=== PATIENT | male | born 1985 | race Caucasian/White ===

== ENCOUNTER 2020-03-02 08:53 | Emergency (ER) | payer SELFPAY ==
--- NOTE | ~2020-03-02 | CT_ITS ---
EXAMINATION: CT brain wo con DATE: 03/02/2020 09:40 INDICATION: Unresponsive TECHNIQUE: Computed tomography (CT) of the head was performed without intravenous contrast. Sagittal and coronal reconstructions were performed. The mA was adjusted according to patient size. Iterative reconstruction technique was employed. The dose-length product was 1059.33 mGy-cm. COMPARISON: None FINDINGS: No fracture. No acute intracranial hemorrhage, acute infarction or abnormal extra axial fluid collect ion. Ventricles are normal and symmetric. No mass/mass effect. Nasogastric tube coils in the orophary nx with distal tip directed cephalad and positioned at the posterior left nasal cavity/nasopharynx. P rominent mucosal thickening with opacification multiple right ethmoid sinuses and opacification of th e left maxillary sinuses. Mild mucosal thickening the right sphenoid and left ethmoid sinuses. The or bits and mastoid air cells are normal. IMPRESSION: 1. Normal brain. No acute intracranial process. 2. Nasogastric tube coils in the oropharynx with distal tip extending cephalad at the left nasal cavi ty/nasopharynx. Recommend withdrawal and repositioning. Reviewed, dictated and finalized at location B. IMPRESSION: 1. Normal brain. No acute intracranial process. 2. Nasogastric tube coils in the oropharynx with distal tip extending cephalad at the left nasal cavity/nasopharynx. Recommend withdrawal and repositioning.
--- NOTE | ~2020-03-02 | CT_ITS ---
EXAMINATION: CT chest abdomen pelvis wo con DATE: 03/02/2020 09:40 INDICATION: Unresponsive, jaundice, GI bleeding TECHNIQUE: Computed tomography (CT) of the chest, abdomen, and pelvis was performed without intraveno us contrast. The dose-length product (DLP) was 1990.84 mGy-cm. Automated exposure control and iterati ve reconstruction technique were employed. COMPARISON: None FINDINGS: CHEST: Respiratory motion artifact limits evaluation of the chest. No focal airspace opacity is ident ified. There is no pleural effusion or pneumothorax. No pathologically enlarged thoracic lymph nodes are identified. The heart size is normal. Mild gynecomastia is noted. There is moderate lower thoraci c spondylosis. Abdomen/pelvis: There is distention of the gallbladder with gallbladder wall thickening. The liver padilla rface appears nodular. The spleen, pancreas, and adrenal glands are normal. The kidneys are unremarka ble. Periportal, upper abdominal, perisplenic, and right paracaval soft tissue densities could reflec t lymphadenopathy or varices, distinction is difficult without intravenous contrast although the latt er is suspected. There is no free intraperitoneal gas or evidence of bowel obstruction. There is a la rge umbilical hernia containing fat. IMPRESSION: 1. Cirrhosis with possible extensive abdominal varices and collateral vessels, distinction difficult without intravenous contrast. 2. Gallbladder distention and wall thickening which could relate to chronic liver disease. 3. No acute abnormality of the chest. Reviewed, dictated and finalized at location A. IMPRESSION: 1. Cirrhosis with possible extensive abdominal varices and collateral vessels, distinction difficult without intravenous contrast. 2. Gallbladder distention and wall thickening which could relate to chronic navarro er disease. 3. No acute abnormality of the chest.
--- NOTE | ~2020-03-02 | CT_ITS ---
EXAMINATION: CT cervical spine wo con DATE: 03/02/2020 09:40 INDICATION: Unresponsive. TECHNIQUE: Computed tomography (CT) of the cervical spine was performed without intravenous contrast. Automated exposure control and iterative reconstruction technique were employed. The dose-length pro duct was 623.89 mGy-cm. COMPARISON: None FINDINGS: The nasogastric tube is coiled in the pharynx. There is mild kyphosis of cervical spine. Th ere is 6 degrees dextrocurvature of cervical spine. Vertebral body heights are normal. There is mildl y decreased disc height at C4-C5, C5-C6, and C6-C7. The following disc levels are specifically discus sed: C2-C3: There is mild left uncovertebral joint osteoarthritis. There is mild bilateral facet joint ost eoarthritis. There is no neural foraminal stenosis. There is no central canal stenosis. C3-C4: There is mild left uncovertebral joint osteoarthritis. There is mild bilateral facet joint ost eoarthritis. There is no neural foraminal stenosis. There is no central canal stenosis. C4-C5: There is no uncovertebral joint osteoarthritis. There is no facet joint osteoarthritis. There is no neural foraminal stenosis. There is no central canal stenosis. C5-C6: There is mild bilateral uncovertebral joint osteoarthritis. There is mild right facet joint os teoarthritis. There is no neural foraminal stenosis. There is mild central canal stenosis. C6-C7: There is mild bilateral uncovertebral joint osteoarthritis. There is mild left facet joint ost eoarthritis. There is no neural foraminal stenosis. There is mild central canal stenosis. C7-T1: There is no uncovertebral joint osteoarthritis. There is mild right facet joint osteoarthritis . There is no neural foraminal stenosis. There is no central canal stenosis. IMPRESSION: 1. No fracture. 2. Mild cervical spondylosis. 3. Nasogastric tube coiled in the pharynx. Reviewed, dictated and finalized at location A.
[2020-03-02 08:55] VITALS: PULSE 140; RESP 26; TEMP 36.4; O2SAT 99
[2020-03-02 09:00] VITALS: PULSE 155; RESP 26; O2SAT 92
--- NOTE | 2020-03-02 09:06 | ECG_ITS ---
Measurements Intervals [place] Rate: 146 P: 56 MS: 84 QRS: 44 QRSD: 101 T: 67 QT: 327 QTc: 510 Interpretive Statements ATRIAL FLUTTER/TACHYCARDIA WITH RAPID VENTRICULAR RESPONSE DELAYED PRECORDIAL R/S TRANSITION NONSPECIFIC ST & T-WAVE ABNORMALITY- INF/LAT LEADS BASELINE ARTIFACT- I, II, III, AVL, AVF, V1-V2, V5-V6 ABNORMAL ECG Electronically Signed On 03-02-2020 12:29:43 CDT by Jasen Gaona D.O.
[2020-03-02 09:32] LABS: Hematocrit 27.2 % (40.0-54.0); Hemoglobin 9.5 g/dL (14.0-18.0); Immature Platelet Fraction Pct 4.7 % (1.0-7.0); Mean Corpuscular HGB Conc 34.9 g/dL (32.0-36.0); Mean Corpuscular Hemoglobin 31.8 pg (27.0-31.0); Mean Platelet Volume 13.3 fl (8.7-11.0); Platelet Count Result 30 K/mm3 (150-420); Red Blood Count 2.99 M/mm3 (4.70-6.10); Red Cell Distribution Width 16.4 % (11.6-14.4); White Blood Count 12.2 K/mm3 (4.8-10.8)
[2020-03-02 09:46] LABS: Alanine Aminotransferase 63 U/L (16-63); Albumin Level 1.3 g/dL (3.4-5.0); Alkaline Phosphatase 132 U/L (46-116); Anion Gap 12 mmol/L (8-16); Aspartate Amino Transferase 272 U/L (15-37); Blood Urea Nitrogen 17 mg/dL (7-18); Calcium 6.4 mg/dL (8.5-10.1); Carbon Dioxide 28 mmol/L (21-32); Chloride 93 mmol/L (98-108); Estimated Glomerular Filt Rate > 60; Glucose 115 mg/dL (70-99); Osmolality Calculated 278 mOsm/kg (285-295); Potassium 3.5 mmol/L (3.5-5.1); Sodium 133 mmol/L (136-145)
[2020-03-02 09:47] LABS: Bilirubin,Total 13.7 mg/dL (0.00-1.00)
[2020-03-02 09:48] LABS: Ammonia 190 umol/L (11-32); Lipase 69 U/L (73-393); Magnesium 0.9 mg/dL (1.8-2.4)
[2020-03-02 09:49] LABS: INR 3.6; Lactic Acid 12.9 mmol/L (0.4-2.0); Partial Thromboplastin Time 73.2 SEC (22.3-31.6); Prothrombin Time 35.2 Seconds (9.64-11.0)
[2020-03-02 09:49] LABS: Ethanol 253 mg/dL (0-6)
[2020-03-02] MEDS: ETOMIDATE 20 MG/10 ML AMPUL 40 MG (09:56)
[2020-03-02] MEDS: SUCCINYLCHOLINE CHLORIDE 200 MG/10 ML SYRINGE (09:57)
[2020-03-02] MEDS: SODIUM CHLORIDE 0.9% IV 1,000 ML 999 ML IV CONT (10:00)
[2020-03-02] MEDS: MAGNESIUM SULF 2 GM/WATER 50ML 2 GM/50 ML BAG 50 GM (10:00)
[2020-03-02 10:30] LABS: Creatine Kinase 389 U/L (39-308); Troponin I 0.04 ng/mL (0.00-0.056)
--- NOTE | 2020-03-02 10:31 | ED.AMS ---
HPI - Altered Mental Status General Chief Complaint: Altered Mental Status Stated Complaint: ambulance Source: EMS Mode of arrival: EMS Limitations: altered mental status History of Present Illness HPI narrative: This is a 35-year-old gentleman presents via EMS unresponsive, was found unresponsive at home by his caregiver marine consultant and contacted EMS and was brought to the emergency department. Patient was noted to have nausea and vomiting bright red emesis profusely, unresponsive to verbal and to painful stimuli. Has a past medical history that is significant for alcohol abuse and according to his mother he would rarely if ever go to a doctor even if he was not feeling well. Patient was brought in he was some actively vomiting with bright red blood, he was jaundiced with pupils that were fixed and mildly responsive to light. No response to verbal stimuli, the patient was on a non-rebreather at 15 L of oxygen and was satting at 99 to 100% with a heart rate initially in the 140s. No known past medical history, after speaking to the mother she believes that he had issues with obstructive sleep apnea and high blood pressure and tried to get and come to see a physician to no avail. According to the mother he started having some bright red blood per emesis that was mild initially and then in the morning there was noted quite a bit of blood on his pillow, mother went to work and there was a house gas that was staying with him that noted that he became unresponsive and at that point EMS was called. complaint: altered mental status Onset (ago): hour(s) Timing confirmed by: caregiver Severity: severe Consistency of symptoms: constant Context: alcohol abuse Associated symptoms: nausea/vomiting Treatments prior to arrival: IV fluid and oxygen Related Data Home Medications Medication Instructions Recorded Confirmed Unable to Obtain Home Medications 03/02/20 03/02/20 Allergies Allergy/AdvReac Type Severity Reaction Status Date / Time No Known Allergies Allergy Mild Verified 05/03/08 22:12 Review of Systems Review of Systems: All systems reviewed & are unremarkable except as noted in HPI and below ROS unobtainable: Yes unobtainable due to medical condition Constitutional: Constitutional: Reports as per HPI [facility] Past Medical History Medical History Alcohol abuse HTN (hypertension) Exam Const: Limitations: altered mental status Eyes: Other: pupils dilated and minimally reactive to light Neck: Neck: no lymphadenopathy and no meningeal signs Chest: Chest palpation & inspection: abnormal inspection of the chest Resp: Effort & Inspection: labored and uses accessory muscles Auscultation: diminished lung sounds Cardio: Rate: tachycardic GI: Other: hematemesis Skin: General skin exam: jaundice Neuro: Speech: Abnormal speech present Other: unresponsive to verbal and painful stimuli Extrem: General: no pedal edema Psych: Other: unresponsive Course Course Emergency Course: reassessment and continuous assessent of patient, pro profuse GI bleed, code was called patient was in PE a and CPR was started patient prior was given RSI medication for intubation, due to the fact of profusely bleeding is a difficult intubation attempt, the patient was continued to be bagged with oxygen and CPR continued patient received 5 epinephrine and after 25 minutes of attempted CPR the patient was continuously in of PA rhythm and the cold was called approximately 10:22 a.m.. Patient had profuse bleeding from the mouth attempted suctions were to no avail since he was profusely bleeding. Spoke to mother and let her know of the events that took place that attempts were made with CPR and patient not responsive and succumbed to GI bleeding/pulseless electrical activity. Vital Signs Vital signs: Vital Signs Temperature 36.4 C L 03/02/20 08:55 Pulse Rate 140 H 03/02/20 08:55 Respirator
--- NOTE | 2020-03-02 10:48 | PC.NURSE ---
1000 See code sheet.
--- NOTE | 2020-03-02 11:34 | PC.NURSE ---
1005 See code sheet, pt. has continuous lrg volumes of bleeding from his mouth and nose, resp. attempting to suction continuously and unable to secure airway due to massive volume of bleeding.
[2020-03-03 13:52] LABS: SARS-CoV-2 RNA PCR Negative
== END 2020-03-02 10:18 | disposition expired ==
PROVIDERS: Emergency Provider Emergency Medicine
DX: K92.0 Hematemesis (principal); I46.9 Cardiac arrest, cause unspecified; I10 Essential (primary) hypertension; F10.10 Alcohol abuse, uncomplicated; Z20.828 Contact with and (suspected) exposure to other viral communicable diseases
CPT/HCPCS: 36415; 70450; 71250; 72125; 74176; 80053; 80307; 82140; 82550; 82553; 83605; 83690; 83735; 84484; 85027; 85055; 85610; 85730; 86850; 86900; 86901; 87040; 87077; 87186; 87635; 92950; 93005; 96374; 96375; 99284; 99285; C9803; J0171; J0330; J0461; J3010; J3475; J7030; U0003